=== PATIENT | female | born 1985 | race Caucasian/White ===

== ENCOUNTER 2022-05-10 21:41 | Emergency (ER) | payer OTHER ==
[~2022-05-10] VITALS: Ht 175.3 cm; Wt 65.8 kg
--- NOTE | 2022-05-10 22:15 | NUR ---
TO ER BED 16. BIBROOMMATE C/O EPIGASTRIC PAIN SINCE 1999 [facility] [employer]. PAIN IS 10/10 ON P/S. PT IS ALERT AND ORIENTED. AMBULATORY WITH STEADY GAIT. BREATHING IS EVEN AND NON LABORED. CONNECTED TO MONITOR. AWAITING MD FLOREZ
[2022-05-10] MEDS ORDERED: DICYCLOMINE HCL INJ 20 MG/2 ML AMPUL IM ONE ×2 (22:45→23:00)
[2022-05-10] MEDS ORDERED: ONDANSETRON HCL/PF 4 MG/2 ML VIAL ONE (22:45)
[2022-05-10] MEDS ORDERED: ONDANSETRON HCL/PF 4 MG/2 ML VIAL IVP ONE (23:00)
[2022-05-10] MEDS ORDERED: IV NS 0.9% 1,000 ML BAG IV ONE (23:00)
--- NOTE | 2022-05-10 23:01 | NUR ---
URINE COLLECTED AND SENT TO LAB
--- NOTE | 2022-05-10 23:01 | NUR ---
IV LINE ESTABLISHED, [id number]. BLOOD COLLECTED AND SENT TO LAB
[2022-05-10] MEDS ORDERED: MORPHINE SULFATE INJ 4 MG/ML DISP.SYRIN ONE (23:16)
[2022-05-10] MEDS ORDERED: MORPHINE SULFATE INJ 2 MG/ML DISP.SYRIN IV ONE (23:30)
[2022-05-10 23:34] LABS: BASOPHILS % (AUTO) 0.2 % (0.0-2.0); EOSINOPHILS % (AUTO) 0.1 % (0.0-6.0); HEMATOCRIT 41 % (33-45); HEMOGLOBIN 13.7 g/dL (11.5-14.8); LYMPHOCYTES # (AUTO) 1.6 K/uL (0.8-4.8); LYMPHOCYTES % (AUTO) 11.1 % (20.0-44.0); MEAN CORPUSCULAR HGB CONC 33 g/dl (31.0-36.0); MEAN CORPUSCULAR VOLUME 95 fL (82-100); MONOCYTES % (AUTO) 7.1 % (2.0-12.0); NEUTROPHILS # (AUTO) 11.8 K/uL (1.8-8.9); NEUTROPHILS % (AUTO) 81.5 % (43.0-81.0); PLATELET COUNT (AUTO) 392 K/uL (150-450); RED BLOOD CELL COUNT(AUTO) 4.32 MIL/uL (4.0-5.2); WHITE BLOOD COUNT (AUTO) 14.5 K/uL (4.3-11.0)
[2022-05-10 23:38] LABS: BILIRUBIN,URINE NEGATIVE (NEGATIVE); COLOR,URINE YELLOW (YELLOW); LEUKOCYTE ESTERASE ,URINE SMALL (NEGATIVE); NITRITE, URINE NEGATIVE (NEGATIVE); PH,URINE 8.5 (5.0-8.0); PROTEIN,URINE TRACE mg/dl (NEGATIVE); UGLUCOSE NEGATIVE (NEGATIVE); UROBILINOGEN,URINE 0.2 EU/dL (0.2)
[2022-05-10 23:41] LABS: CALCIUM, SERUM 9.8 mg/dL (8.5-10.1); CREATININE 1.1 mg/dL (0.6-1.3); POTASSIUM 3.5 mmol/L (3.5-5.1)
[2022-05-10 23:44] LABS: BACTERIA,URINE Few /HPF (None Seen); SQUAMOUS EPITHELIAL CELL,UR Rare /HPF (None Seen)
--- NOTE | 2022-05-10 23:47 | NUR ---
PT TAKEN FOR CT SCAN
--- NOTE | 2022-05-10 23:51 | NUR ---
PT RETURNED FROM CT SCAN, RECONNECTED TO MONITOR
[2022-05-10 23:57] LABS: ALBUMIN 4.9 g/dL (3.4-5.0); BILIRUBIN,DIRECT 0.1 mg/dL (0.0-0.2); BILIRUBIN,TOTAL 0.5 mg/dL (0.2-1.0); TOTAL PROTEIN, SERUM 8.5 g/dL (6.4-8.2)
[2022-05-11] MEDS ORDERED: NITR100C6 PO (00:06)
[2022-05-11] MEDS ORDERED: ONDA4TAB5 PO (00:06)
[2022-05-11] MEDS ORDERED: DICY10CA37 PO (00:06)
[2022-05-11] MEDS ORDERED: NITROFURANTOIN/MONOHYDRATE MACROCRYSTALS 100 MG CAPSULE ONE (00:10)
--- NOTE | 2022-05-11 00:16 | NUR ---
Patient discharged to home in stable condition. Written and verbal after care instructions given. Patient verbalizes understanding of instruction.
--- NOTE | 2022-05-11 00:16 | NUR ---
IV removed. Catheter intact and site benign. Pressure and 4x4 applied to site. No bleeding noted.
[2022-05-11 00:18] VITALS: BP 131/80
[2022-05-11] MEDS ORDERED: NITROFURANTOIN/MONOHYDRATE MACROCRYSTALS 100 MG CAPSULE PO ONE (00:30)
== END 2022-05-11 00:19 | disposition home or self-care (01) ==
LOC: ER 22:17
DX: N39.0 Urinary tract infection, site not specified (principal); R10.84 Generalized abdominal pain; Z79.899 Other long term (current) drug therapy
CPT/HCPCS: 99284; 74176; 96374; 96361; 96375; 85025; 80048; 87086; 83690; 80076; 84703; 81001; 36415; 85730; 96372; J2270; J2405; J7030; J0500